=== PATIENT | female | born 1955 | race Caucasian/White ===

== ENCOUNTER 2018-12-22 16:58 | Emergency (ER) | payer OTHER ==
[~2018-12-22] VITALS: Ht 175.3 cm; Wt 90.9 kg
[2018-12-22] MEDS ORDERED: BACITRACIN 0.9 GM PACKET OINTMENT TP ONE (17:15)
[2018-12-22] MEDS ORDERED: PERTUSS(ACELL),DIPH,TET VAC/PF 0.5 ML VIAL IM ONE (17:15)
[2018-12-22 17:17] LABS: BASOPHILS % (AUTO) 0.5 % (0.0-2.0); EOSINOPHILS % (AUTO) 1.9 % (1.0-6.0); HEMATOCRIT 36.7 % (36-46); HEMOGLOBIN 11.8 g/dL (12.0-16.0); LYMPHOCYTES # (AUTO) 2.3 K/uL (1.0-4.8); LYMPHOCYTES % (AUTO) 18.8 % (22.0-44.0); MEAN CORPUSCULAR HGB CONC 32.2 G/dL (31.0-37.0); MEAN CORPUSCULAR VOLUME 87 fL (80-100); MONOCYTES # (AUTO) 0.8 K/uL (0.1-1.0); MONOCYTES % (AUTO) 6.5 % (2.0-9.0); NEUTROPHILS # (AUTO) 8.8 K/uL (1.8-7.7); NEUTROPHILS % (AUTO) 72.3 % (40.0-70.0); PLATELET COUNT (AUTO) 274 K/uL (150-450); RED BLOOD CELL COUNT(AUTO) 4.22 MIL/uL (4.00-5.20); RED CELL DISTRIBUTION WIDTH 13.2 % (11.5-14.5)
[2018-12-22 17:35] LABS: CALCIUM, TOTAL 9.8 mg/dL (8.8-10.5); CREATININE 1.38 mg/dL (0.60-1.30); POTASSIUM 3.6 mmol/L (3.5-5.1)
[2018-12-22 17:41] LABS: ALBUMIN 3.5 g/dL (3.4-5.0); BILIRUBIN,TOTAL 0.3 mg/dL (0.1-1.0); TOTAL PROTEIN, SERUM 7.8 g/dL (6.4-8.2)
[2018-12-22 17:44] LABS: GLUCOSE,POINT OF CARE 257 MG/DL (70-110)
[2018-12-22] MEDS ORDERED: LEVO25TA9 PO (17:57)
[2018-12-22] MEDS ORDERED: GLIP5 PO (17:57)
[2018-12-22] MEDS ORDERED: HYDR-4455 PO (17:57)
[2018-12-22] MEDS ORDERED: ASPI81 PO (17:57)
[2018-12-22] MEDS ORDERED: [UNRECOGNIZED DRUG - REMARK] PO (17:57)
[2018-12-22] MEDS ORDERED: ATOR10TA84 PO (17:57)
[2018-12-22 18:17] VITALS: BP 132/59
== END 2018-12-22 20:17 | disposition home or self-care (01) ==
LOC: EMS 16:58
DX: S01.01XA Laceration without foreign body of scalp, initial encounter (principal); S61.212A Laceration without foreign body of right middle finger without damage to nail, initial encounter; S63.612A Unspecified sprain of right middle finger, initial encounter; F10.129 Alcohol abuse with intoxication, unspecified; Z79.82 Long term (current) use of aspirin; Y90.6 Blood alcohol level of 120-199 mg/100 ml; W10.9XXA Fall (on) (from) unspecified stairs and steps, initial encounter; Y93.89 Activity, other specified; Y92.89 Other specified places as the place of occurrence of the external cause; Y99.8 Other external cause status
CPT/HCPCS: 12002; 29130; 36415; 70450; 73130; 80053; 82962; 85025; 90471; 90715; 99284; G0480